=== PATIENT | female | born 1965 | race Caucasian/White ===

== ENCOUNTER 2024-07-05 12:56 | Observation (INO) ==
[2024-07-05] MEDS ORDERED: IOPAMIDOL 100 ML BOTTLE IV ONE (12:57)
[2024-07-05] MEDS: KETOROLAC 30 MG/ML VIAL IM ONE (13:29)
[2024-07-05] MEDS: diphenhydrAMINE 25 MG CAPSULE PO ONE (13:29)
[2024-07-05] MEDS: PROCHLORPERAZINE 10 MG/2 ML VIAL IM ONE (13:30)
[2024-07-05 13:34] LABS: Basophils # (Auto) 0.04 K/mcL (0.00-0.30); Basophils % (Auto) 0.2 % (0.0-2.0); Eosinophils # (Auto) 0 K/mcL (0.00-0.70); Eosinophils % (Auto) 0 % (0.0-7.0); Hematocrit 43.1 % (34.1-44.9); Hemoglobin 14.8 g/dL (11.2-15.7); Lymphocytes # (Auto) 0.89 K/mcL (1.50-4.80); Lymphocytes % (Auto) 5.5 % (15.5-49.0); Mean Cell Volume 85.9 fL (80.0-100.0); Mean Corpuscular HGB Conc 34.3 g/dL (31.0-36.0); Monocytes # (Auto) 1.36 K/mcL (0.10-0.90); Monocytes % (Auto) 8.4 % (1.0-12.0); Neutrophils % (Auto) 85.3 % (38.0-78.0); Platelet Count 249 K/mcL (140-440); RBC 5.02 M/mcL (3.59-5.38); Red Cell Distribution Width 12.5 % (11.5-14.5); WBC 16.1 K/mcL (4.5-11.0)
[2024-07-05 13:55] LABS: ALT/SGPT 11 U/L (<40); AST/SGOT 16 U/L (<32); Albumin 4.4 gm/dL (3.2-5.2); Albumin/Globulin Ratio 1.3 (1.0-2.3); Alkaline Phosphatase 139 U/L (39-117); Bilirubin,Total 0.4 mg/dL (0.1-1.0); Blood Urea Nitrogen 12 mg/dL (6-20); Calcium 9.6 mg/dL (8.6-10.4); Carbon Dioxide 17 mmol/L (22-30); Chloride 94 mmol/L (96-108); Globulin 3.3 gm/dL (2.2-3.7); Glomerular Filtration Rate 71; Glucose 149 mg/dL (70-105); Potassium 3.7 mmol/L (3.3-5.1); Sodium 129 mmol/L (133-145)
[2024-07-05] MEDS: ACETAMINOPHEN 1,000 MG/100 ML BAG IV ONE (16:37)
[2024-07-05] MEDS: cefTRIAXone 1 GM VIAL IV ONE ×2 (16:38→23:59)
[2024-07-05] MEDS: OSELTAMIVIR PHOSPHATE 75 MG CAPSULE PO ONE (17:04)
[2024-07-05] MEDS: 0.9 % SODIUM CHLORIDE 1,000 ML IV ONE (18:37)
[2024-07-05 18:52] LABS: Beta Hydroxybutyrate 2.56 mmol/L (<0.27)
[2024-07-05 22:03] LABS: ALT/SGPT 8 U/L (<40); AST/SGOT 15 U/L (<32); Albumin 3.8 gm/dL (3.2-5.2); Albumin/Globulin Ratio 1.2 (1.0-2.3); Alkaline Phosphatase 126 U/L (39-117); Bilirubin,Total 0.3 mg/dL (0.1-1.0); Blood Urea Nitrogen 16 mg/dL (6-20); Calcium 9.3 mg/dL (8.6-10.4); Carbon Dioxide 12 mmol/L (22-30); Chloride 101 mmol/L (96-108); Globulin 3.2 gm/dL (2.2-3.7); Glomerular Filtration Rate 56; Glucose 155 mg/dL (70-105); Potassium 3.5 mmol/L (3.3-5.1); Sodium 133 mmol/L (133-145)
[2024-07-05] MEDS ORDERED: KETOROLAC 15 MG/ML VIAL IV PRN (23:56)
[2024-07-05] MEDS ORDERED: ONDANSETRON 4 MG/2 ML VIAL IV PRN (23:56)
[2024-07-05] MEDS ORDERED: DEXTROSE 31 GM ORAL.SUSP PO PRN (23:56)
[2024-07-05] MEDS ORDERED: DEXTROSE 50% 50 ML VIAL IV PRN (23:56)
[2024-07-05] MEDS ORDERED: SUMAtriptan SUCCINATE 50 MG TABLET PO PRN (23:56)
[2024-07-06 00:10] LABS: Appearance,Urine CLEAR (Clear); Bilirubin,Urine Negative (Negative); Color,Urine STRAW; Glucose,Urine (UA) Negative (Negative); Ketones,Urine 20 mg/dL (Negative); Leukocyte Esterase,Urine Negative /uL (Negative); Mucus,Urine FEW /hpf; Nitrate,Urine Negative (Negative); Protein,Urine 30 mg/dL (Negative); Specific Gravity,Urine 1.021 (1.000-1.035); Urine RBC < 1 /hpf (0-3); Urine Squamous Epithelial Cell < 1 /hpf (0-4); Urine WBC 7 /hpf (0-4); Urobilinogen,Urine Negative
[2024-07-06 00:53] LABS: Amphetamine Screen,Urine Suspect positive; Barbiturate Screen,Urine None detected; Benzodiazepines Screen,Urine Suspect positive; Cannabinoid Screen,Urine Suspect Positive; Cocaine Screen,Urine None detected; Fentanyl, Urine Screen None Detected; Opiate Screen,Urine None detected; Oxycodone, Urine Screen None detected; Phencyclidine Screen,Urine None detected
[2024-07-06] MEDS: 0.9 % SODIUM CHLORIDE 1,000 ML IV SCH (01:07)
[2024-07-06] MEDS: DOXEPIN 10 MG CAPSULE PO SCH (03:39)
[2024-07-06] MEDS: DIAZEPAM 5 MG TABLET PO PRN (03:40)
[2024-07-06] MEDS: DIAZEPAM 5 MG TABLET ONE (03:40)
[2024-07-06] MEDS: ACETAMINOPHEN 325 MG TABLET PO PRN (04:41)
[2024-07-06] MEDS: ACETAMINOPHEN 325 MG TABLET PO ONE (04:46)
[2024-07-06] MEDS: 0.9 % SODIUM CHLORIDE 10 ML SYRINGE IV SCH (05:06)
[2024-07-06 06:06] LABS: Basophils # (Auto) 0.02 K/mcL (0.00-0.30); Basophils % (Auto) 0.1 % (0.0-2.0); Eosinophils # (Auto) 0 K/mcL (0.00-0.70); Eosinophils % (Auto) 0 % (0.0-7.0); Hematocrit 38.5 % (34.1-44.9); Hemoglobin 12.9 g/dL (11.2-15.7); Lymphocytes % (Auto) 3.7 % (15.5-49.0); Mean Cell Volume 88.3 fL (80.0-100.0); Mean Corpuscular HGB Conc 33.5 g/dL (31.0-36.0); Mean Platelet Volume 9.1 fL (8.8-12.5); Monocytes # (Auto) 1.17 K/mcL (0.10-0.90); Monocytes % (Auto) 8.8 % (1.0-12.0); Neutrophils % (Auto) 86.8 % (38.0-78.0); Platelet Count 232 K/mcL (140-440); RBC 4.36 M/mcL (3.59-5.38); Red Cell Distribution Width 12.9 % (11.5-14.5); WBC 13.4 K/mcL (4.5-11.0)
[2024-07-06 06:10] LABS: ABG Methemoglobin 0.3 % (0.4-1.5); Total Hemoglobin 14.1 gm/Dl (12.0-15.0); VBG Base Excess -8 (-2-3); VBG HCO3 15.4 mmol/L (24.0-28.0); VBG Oxygen Saturation 94.1 % (40.0-70.0); VBG PCO2 26.3 mmHg (41.0-51.0); VBG PH 7.39 U (7.32-7.42); VBG PO2 101.8 mmHg (25.0-40.0); VBG Total CO2 16.2 mmol/L (25.0-29.0)
[2024-07-06 06:31] LABS: ALT/SGPT 10 U/L (<40); AST/SGOT 15 U/L (<32); Albumin 3.8 gm/dL (3.2-5.2); Albumin/Globulin Ratio 1.3 (1.0-2.3); Alkaline Phosphatase 121 U/L (39-117); Bilirubin,Direct < 0.2 mg/dL (0-0.3); Bilirubin,Total 0.3 mg/dL (0.1-1.0); Blood Urea Nitrogen 12 mg/dL (6-20); Calcium 9.1 mg/dL (8.6-10.4); Carbon Dioxide 14 mmol/L (22-30); Chloride 99 mmol/L (96-108); Glomerular Filtration Rate 82; Glucose 174 mg/dL (70-105); Lactate Dehydrogenase 155 U/L (135-225); Phosphorous 1.5 mg/dL (2.5-4.5); Potassium 3.4 mmol/L (3.3-5.1); Sodium 131 mmol/L (133-145); Triglycerides 121 mg/dL (<150); Uric Acid 6.9 mg/dL (2.5-8.0)
[2024-07-06] MEDS ORDERED: POTASSIUM PHOSPHATE 40 MEQ in DEXTROSE 5% IN WATER 500 ML IV ONE (06:34)
[2024-07-06 07:14] LABS: Estimated Average Glucose(eAG) 140 mg/dL; Hemoglobin A1C 6.5 % Hgb (4.0-6.0)
[2024-07-06] MEDS ORDERED: INSULIN LISPRO 1 UNIT/0.01 ML UNIT SQ SCH (07:30)
[2024-07-06] MEDS ORDERED: OSELTAMIVIR PHOSPHATE 75 MG CAPSULE PO SCH (09:00)
[2024-07-06] MEDS ORDERED: ENOXAPARIN 40 MG/0.4 ML SYRINGE SQ SCH (09:00)
[2024-07-06] MEDS ORDERED: DOCUSATE SODIUM 100 MG CAPSULE PO SCH (09:00)
[2024-07-06] MEDS ORDERED: cefTRIAXone 2 GM in DEXTROSE 5% IN WATER 50 ML IV SCH (16:00)
[2024-07-06] MEDS ORDERED: INSULIN GLARGINE, HUMAN 1 UNIT/0.01 ML SQ SCH (21:00)
[2024-07-06] MEDS ORDERED: SENNOSIDES 1 TABLET PO SCH (21:00)
[2024-07-14 03:08] LABS: Alprazolam, Urine Negative (Cutoff=100); Amphetamine Screen Negative (Cutoff=500); Clonazepam, Urine Negative (Cutoff=100); Flurazepam, Urine Negative (Cutoff=100); Lorazepam, Urine Negative (Cutoff=100); Midazolam, Urine Negative (Cutoff=100); Nordiazepam, Urine Negative (Cutoff=100); Oxazapam Confirm, Urine 390 ng/mL (Cutoff=100); Oxazepam, Urine Positive; Temazepam Confirm, Urine 217 ng/mL (Cutoff=100); Temazepam, Urine Positive; Triazolam, Urine Negative (Cutoff=100)
== END 2024-07-06 07:27 | disposition left against medical advice (07) ==
LOC: ED 12:56 → INTOOBSV 23:50 → MEDSUR 23:50
PROVIDERS: ADMIT Internal Medicine; ATTEND Internal Medicine